=== PATIENT | female | born 1990 | race African-American/Black ===

== ENCOUNTER 2022-03-17 20:22 | Emergency (ER) | payer MEDICAID ==
[~2022-03-17] VITALS: Ht 167.6 cm; Wt 86.0 kg
[2022-03-17 21:12] LABS: BASOPHILS % 0.4 % (0.0-2.0); EOSINOPHILS % 6.1 % (0.0-5.0); HEMATOCRIT. 32.8 % (36.0-48.0); HEMOGLOBIN. 10.9 g/dL (12.0-16.0); MEAN CORPUSCULAR HEMOGLOBIN 27.4 pg (28.0-32.0); MEAN CORPUSCULAR VOLUME 82.7 fL (81.0-99.0); MEAN PLATELET VOLUME 9.7 fl (7.4-10.4); MONOCYTES % 7.1 % (2.0-8.0); NEUTROPHILS % 53.4 % (40.0-76.0); PLATELET 225 x1000/uL (130-400); RED BLOOD CELL COUNT 3.96 mill/uL (4.2-5.4); RED CELL DISTRIBUTION WIDTH 13.2 % (11.6-14.6)
[2022-03-17 21:18] LABS: CHLORIDE 104 mEq/L (98-107)
[2022-03-17 21:27] LABS: ETHANOL BLOOD < 10 mg/dL
[2022-03-17 22:44] LABS: CLARITY URINE CLEAR (CLEAR); COLOR URINE YELLOW (YELLOW); KETONES URINE TRACE (NEGATIVE); LEUKOCYTE ESTERASE URINE TRACE (NEGATIVE); NITRITE URINE NEGATIVE (NEGATIVE); OCCULT BLOOD URINE NEGATIVE (NEGATIVE); PH URINE 6.5 (4.5-8.0); PROTEIN URINE NEGATIVE (NEGATIVE); SPECIFIC GRAVITY URINE 1.021 (1.005-1.030)
[2022-03-17] MEDS: RISPERIDONE 1MG TABLET PO SCH (22:51)
[2022-03-17] MEDS: DIVALPROEX SODIUM 500MG DR TABLET PO SCH (22:51)
[2022-03-17 23:00] LABS: *AMPHETAMINES SCREEN URINE NEGATIVE (NEGATIVE); *BARBITURATES SCREEN URINE NEGATIVE (NEGATIVE); *BENZODIAZEPINES SCREEN URINE NEGATIVE (NEGATIVE); *COCAINE SCREEN URINE NEGATIVE (NEGATIVE); CANNABINOID URINE SCREEN NEGATIVE (NEGATIVE); METHADONE URINE SCREEN NEGATIVE (NEGATIVE); OPIATES URINE SCREEN NEGATIVE (NEGATIVE)
[2022-03-17 23:16] LABS: PHENCYCLIDINE URINE SCREEN PRESUMTIVE POSITIVE (NEGATIVE)
[2022-03-18] MEDS: DIVALPROEX SODIUM 500MG DR TABLET PO SCH (09:48)
[2022-03-18] MEDS: RISPERIDONE 1MG TABLET PO SCH (09:48)
[2022-03-18] MEDS ORDERED: MAGNESIUM/ALUMINUM HYDROXIDE/SIMETHICONE 30ML UDC PO ONE (10:00)
[2022-03-18 15:38] VITALS: BP 126/75
== END 2022-03-18 18:42 ==
LOC: ER 20:29
DX: T40.992A Poisoning by other psychodysleptics [hallucinogens], intentional self-harm, initial encounter (principal); F16.229 Hallucinogen dependence with intoxication, unspecified; R44.0 Auditory hallucinations; F31.9 Bipolar disorder, unspecified; F15.20 Other stimulant dependence, uncomplicated; Y92.89 Other specified places as the place of occurrence of the external cause; Z20.822 Contact with and (suspected) exposure to COVID-19
CPT/HCPCS: 36415; 80053; 80305; 80307; 80320; 80329; 81003; 85025; 99285; C9803; U0003; U0005; G0480